=== PATIENT | female | born 1955 | race Caucasian/White ===

== ENCOUNTER 2019-11-10 21:48 | Emergency (ER) | payer OTHER ==
[~2019-11-10] VITALS: Ht 149.9 cm; Wt 74.8 kg
[2019-11-10 23:08] VITALS: BP 103/77
[2019-11-10] MEDS ORDERED: HYDROcodone-ACET 10/325MG TAB PO ONE (23:45)
[2019-11-11] MEDS ORDERED: cefTRIAXone SOD 1,000 MG VL IM ONE
== END 2019-11-11 00:11 | disposition home or self-care (01) ==
LOC: ER 21:52
DX: S91.112A Laceration without foreign body of left great toe without damage to nail, initial encounter (principal); X58.XXXA Exposure to other specified factors, initial encounter; Y93.89 Activity, other specified; Y92.89 Other specified places as the place of occurrence of the external cause; Y99.8 Other external cause status
CPT/HCPCS: 12001; 73620; 96372; 99283; J0696

== ENCOUNTER 2023-10-05 11:13 | Emergency (ER) | payer BC, MEDICAID ==
[~2023-10-05] VITALS: Ht 157.5 cm; Wt 65.6 kg
[2023-10-05 13:48] LABS: Basophils # (auto) 0.1 10 ^3/uL (0-0.2); Basophils % (auto) 0.6 % (0.0-2.0); Eosinophils # (auto) 0.1 10 ^3/uL (0-0.8); Eosinophils % (auto) 1.4 % (0.0-7.0); Hematocrit 42.3 % (36.0-46.0); Hemoglobin 13.6 g/dL (12.2-16.2); Lymphocytes # (auto) 2.5 10 ^3/uL (0.4-5.4); Mean Corpuscular Hemoglobin 29.2 pg (28.0-32.0); Mean Corpuscular Hgb Conc. 32.2 g/dL (32.0-36.0); Mean Corpuscular Volume 90.7 fL (80.0-100.0); Monocytes # (auto) 0.9 10 ^3/uL (0-1.3); Neutrophils # (auto) 5.4 10 ^3/uL (1.6-8.6); Red Blood Cells 4.66 10^6/uL (4.0-5.20); Red Cell Distribution Width 14.9 % (11.8-14.3)
[2023-10-05 14:08] LABS: Alanine Aminotransferase 12 U/L (7-40); Albumin 3.9 g/dL (3.2-4.8); Alkaline Phosphatase 77 U/L (46-116); Anion Gap 8 (5-15); Aspartate Aminotransferase 14 U/L (13-40); BUN/Creatinine Ratio 20.6 (10.0-20.0); Bilirubin, Total 0.3 mg/dL (0.2-1.0); Blood Urea Nitrogen 14 mg/dL (9-23); Calcium 9.6 mg/dL (8.5-10.1); Carbon Dioxide 30 mmol/L (20-30); Chloride 106 mmol/L (98-107); Glucose 91 mg/dL (74-106); Sodium 144 mmol/L (136-145)
[2023-10-05 14:36] LABS: Erythrocyte Sedimentation Rate 19 mm/hr (0-20)
[2023-10-05] MEDS ORDERED: CLIN300C70 PO (15:05)
[2023-10-05 15:15] VITALS: BP 107/77; PULSE 87; RESP 20; TEMP 97.6; O2SAT 98
== END 2023-10-05 15:21 | disposition home or self-care (01) ==
LOC: ER 11:13
DX: L03.113 Cellulitis of right upper limb (principal); F17.210 Nicotine dependence, cigarettes, uncomplicated; F12.10 Cannabis abuse, uncomplicated; J44.9 Chronic obstructive pulmonary disease, unspecified; E78.5 Hyperlipidemia, unspecified; I25.2 Old myocardial infarction; Z98.51 Tubal ligation status
CPT/HCPCS: 36415; 73200; 80053; 85025; 85652